=== PATIENT | male | born 1995 | race American Indian/Alaskan Native ===

== ENCOUNTER 2020-04-21 15:49 | Emergency (ER) | payer SELFPAY ==
[2020-04-21 17:27] VITALS: BP 134/55
== END 2020-04-21 17:24 | disposition left against medical advice (07) ==
LOC: ED 15:49
DX: R11.2 Nausea with vomiting, unspecified (principal); Z53.21 Procedure and treatment not carried out due to patient leaving prior to being seen by health care provider

== ENCOUNTER 2022-03-18 11:02 | Emergency (ER) | payer SELFPAY ==
--- NOTE | 2022-03-18 15:09 | Emergency Department Report ---
ED Abdominal Pain HPI - General Chief Complaint: Abdominal Pain Stated Complaint: ABD PAIN/NAUSEA/VOMITING Source: patient, EMS Mode of arrival: Stretcher Limitations: No Limitations - History of Present Illness Initial Comments: 26-year-old male presents to the ED complaining of abdominal pain with nausea vomiting x2 day. Patient states vomiting x1 today. Patient denies any alcohol or drug use. Patient denies any shortness of breath or chest pain at present time. Patient is alert and oriented x3. No acute distress noted no ill appearance noted. States that he has a history of nausea and vomiting. He states that he was seen at [facility] [place] last night where he had a CT of the abdomen done supposed to follow-up with GI . He states that his CT was normal. MD Complaint: abdominal pain Onset/Timin -: Sudden Location: L flank Severity scale (0 -10): 5 Quality: aching Consistency: intermittent Improves With: nothing - Related Data Previous Rx's Medication Instructions Recorded Last Taken Type Ondansetron (Nf) [Zofran TAB] 8 mg PO Q8HR PRN 3 Days #12 tablet 03/18/22 Unknown Rx Allergies Allergy/AdvReac Type Severity Reaction Status Date / Time No Known Allergies Allergy Unverified 04/21/20 17:23 ED Review of Systems ROS: Stated complaint: ABD PAIN/NAUSEA/VOMITING Other details as noted in HPI Constitutional: denies: chills, fever Eyes: denies: eye pain, eye discharge, vision change ENT: denies: ear pain, throat pain Respiratory: denies: cough, shortness of breath, wheezing Cardiovascular: denies: chest pain, palpitations Endocrine: no symptoms reported Gastrointestinal: denies: abdominal pain, nausea, diarrhea Genitourinary: denies: urgency, dysuria Musculoskeletal: denies: back pain, joint swelling, arthralgia Skin: denies: rash, lesions Neurological: denies: headache, weakness, paresthesias Psychiatric: denies: anxiety, depression Hematological/Lymphatic: denies: easy bleeding, easy bruising ED Past Medical Hx - Past Medical History Previous Medical History?: No - Social History Smoking Status: Current Every Day Smoker - Medications Home Medications: Home Medications Medication Instructions Recorded Confirmed Last Taken Type Ondansetron (Nf) [Zofran TAB] 8 mg PO Q8HR PRN 3 Days #12 tablet 03/18/22 Unknown Rx ED Physical Exam - General Limitations: No Limitations General appearance: alert, in no apparent distress - Head Head exam: Present: atraumatic, normocephalic - Eye Eye exam: Present: normal appearance - ENT ENT exam: Present: mucous membranes moist - Neck Neck exam: Present: normal inspection - Respiratory Respiratory exam: Present: normal lung sounds bilaterally. Absent: respiratory distress - Cardiovascular Cardiovascular Exam: Present: regular rate, normal rhythm. Absent: systolic mur mur, diastolic murmur, rubs, gallop - GI/Abdominal GI/Abdominal exam: Present: soft, normal bowel sounds - Rectal Rectal exam: Present: deferred - Extremities Exam Extremities exam: Present: normal inspection - Back Exam Back exam: Present: normal inspection - Neurological Exam Neurological exam: Present: alert, oriented X3 - Psychiatric Psychiatric exam: Present: normal affect, normal mood - Skin Skin exam: Present: warm, dry, intact, normal color. Absent: rash ED Course Vital Signs 03/18/22 11:07 Temperature 99.1 F Pulse Rate 59 L Respiratory 18 Rate Blood Pressure 116/98 [Left] O2 Sat by Pulse 99 Oximetry ED Medical Decision Making - Lab Data Result diagrams: 03/18/22 13:52 03/18/22 15:26 - Medical Decision Making 26-year-old male presents to the ED complaining of abdominal pain with nausea vomiting x2 day. Patient states vomiting x1 today. Patient denies any alcohol or drug use. Patient denies any shortness of breath or chest pain at present time. Patient is alert and oriented x3. No acute distress noted no ill appearance noted. States that he has a history of nausea and vomiting. He states that he was seen at [facility] [place] last night where he had a CT of the abdomen done supposed to follow-up with GI . He states that his CT was normal. Patient given normal saline 1 L . Patient states his symptoms at the hospital he had no further nausea or vomiting. Physical examination is unremarkable. Patient denies any pain on physical examination. He states that the sensation was more when he was having the nausea and vomiting that has since resolved. Patient was given a p.o. challenge in the ED. Rechecked the patient is resting quietly , comfortable and feeling better. I discussed the results of diagnostic study, my clinical impression and the plan for further treatment with the patient. Patient agrees with plan and discharge at this present time. All question addressed. I have given the patient instruction regarding a diagnosis ,expectation ,follow- up and return precaution. I explained to the patient that emergent condition may arise and to return to the ED for new worsen and any new persisting condition. I have explained the importance of following up with the primary care physician or referral physician listed below has instructed. The patient verbalized understanding of discharge instruction. Abnormal Lab Results 03/18/22 03/18/22 03/18/22 13:52 15:26 Unknown WBC 8.1 RBC 5.60 H Hgb 16.0 H Hct 50.4 H MCV 90 MCH 29 MCHC 32 RDW 13.9 Plt Count 233 Lymph % (Auto) 22.6 [place] % (Auto) 7.5 H Eos % (Auto) 0.2 Baso % (Auto) 0.7 Lymph # (Auto) 1.8 [place] # (Auto) 0.6 Eos # (Auto) 0.0 Baso # (Auto) 0.1 Seg Neutrophils % 69.0 Seg Neutrophils # 5.6 Sodium 133 L Potassium 4.3 Chloride 89.9 L Carbon Dioxide 25 Anion Gap 22 BUN 16 Creatinine 0.9 Estimated GFR > 60 BUN/Creatinine Ratio 18 Glucose 91 Calcium 10.6 H Total Bilirubin 0.70 AST 39 ALT 32 Alkaline Phosphatase 84 Total Protein 8.3 H Albumin 5.9 H Albumin/Globulin Ratio 2.5 Lipase 21 Urine Color Yellow Urine Turbidity Clear Specific [place] (Man) 1.030 Ur Protein (Man) 2+ Ur Ketones (Man) 2+ Ur Nitrite (Man) Negative Ur Reducing Substances Not Reportable Urine Bilirubin (Man) Negative Urine Ictotest Not Reportable Leukocyte Esterase (Man) Negative Urine WBC (Auto) 2.0 Urine RBC (Auto) 1.0 U Epithel Cells (Auto) 1.0 Urine RBC (Manual) Negative Urine Mucus 3+ Critical care attestation.: If time is entered above; I have spent that time in minutes in the direct care of this critically ill patient, excluding procedure time. ED Disposition Clinical Impression: Nausea & vomiting Qualifiers: Vomiting type: unspecified Qualified Code(s): R11.2 - Nausea with vomiting, unspecified Disposition: 01 HOME / SELF CARE / HOMELESS Is pt being admited?: No Does the pt Need Aspirin: No Condition: Stable Instructions: Nausea and Vomiting, Adult, [id number] Additional Instructions: Follow-up with GI doctor his previous schedule with [facility] Return to ED for any worsening symptom Prescriptions: Ondansetron (Nf) [Zofran TAB] 8 mg PO Q8HR PRN 3 Days #12 tablet PRN Reason: Nausea Referrals: BRADFORD DURAN MD [Primary Care Provider] - 3-5 Days [facility] [Provider Group] - 3-5 Days Forms: Work/School Release Form(ED) Time of Disposition: 19:07
[2022-03-18 15:10] LABS: Basophils # (Auto) 0.1 K/mm3 (0.0-0.1); Basophils % (Auto) 0.7 % (0.0-1.8); Eosinophils % (Auto) 0.2 % (0.0-4.3); Hematocrit 50.4 % (35.5-45.6); Lymphocytes # (Auto) 1.8 K/mm3 (1.2-5.4); Lymphocytes % (Auto) 22.6 % (13.4-35.0); Mean Corpuscular HGB Conc 32 % (32-34); Mean Corpuscular Volume 90 fl (84-94); Monocytes # (Auto) 0.6 K/mm3 (0.0-0.8); Monocytes % (Auto) 7.5 % (0.0-7.3); Platelet Count 233 K/mm3 (140-440); Red Cell Distribution Width 13.9 % (13.2-15.2)
[2022-03-18 15:42] LABS: Mucus,Urine 3+ /HPF
[2022-03-18 15:51] LABS: Color,Urine Yellow (Yellow)
[2022-03-18 16:36] LABS: Alanine Aminotransferase 32 units/L (7-56); Albumin 5.9 g/dL (3.9-5); BUN/Creatinine Ratio 18; Blood Urea Nitrogen 16 mg/dL (9-20); Calcium 10.6 mg/dL (8.4-10.2); Hemolysis Index 14
[2022-03-18] MEDS ORDERED: SODIUM CHLORIDE 0.9% 1000 ML 1,000 ML IV ONE (16:59)
[2022-03-18 19:08] VITALS: BP 144/73
== END 2022-03-18 19:12 | disposition home or self-care (01) ==
LOC: ED 11:02
DX: R11.2 Nausea with vomiting, unspecified (principal); F17.200 Nicotine dependence, unspecified, uncomplicated
CPT/HCPCS: 36415; 80053; 81001; 83690; 85025; 96360; 99284; J7030